=== PATIENT | female | born 1960 | race Caucasian/White ===

== ENCOUNTER → 2021-06-15 | Outpatient (CLI) | payer OTHER | LOC: KOH-I 12:45 | DX: R10.30 Lower abdominal pain, unspecified (principal); K59.00 Constipation, unspecified | CPT/HCPCS: 74018 ==

== ENCOUNTER → 2022-01-13 | Outpatient (CLI) | payer OTHER | LOC: KOH-I 09:37 | DX: R31.9 Hematuria, unspecified (principal); K63.89 Other specified diseases of intestine | CPT/HCPCS: 74176 ==